=== PATIENT | female | born 1945 | race Caucasian/White ===

== ENCOUNTER → 2023-05-03 09:54 | Outpatient (REF) | payer MEDICARE, OTHER, SELFPAY | LOC: HWRAD 09:54 | PROVIDERS: ATTENDING PHYSICIAN Family Medicine | DX: N95.0 Postmenopausal bleeding (principal) | CPT/HCPCS: 76830; 76856 ==

== ENCOUNTER 2023-11-18 11:30 | Emergency (ER) | payer MEDICARE, OTHER, SELFPAY ==
[2023-11-18 11:36] VITALS: BP 170/84
[2023-11-18 12:28] VITALS: BMI 28.2
--- NOTE | 2023-11-18 12:56 | ED.GENMED ---
History of Present Illness
General
Chief Complaint: Extremity Pain (non-traumatic)
Time Seen by Provider: 11/18/23 12:16
History of Present Illness
History of Present Illness:
78-year-old female presents emergency department for evaluation of nontraumatic right ankle and lower leg swelling for the past day. She is unsure if there may have been a insect bite to the right foot. She is able to ambulate without significant
pain. Denies any fevers or chills.
Past History
Past History
ED Past Medical History: None
Social History
Tobacco: Former smoker
Employment: Employed
Review of Systems
Review of Systems
Allergies reviewed?: Yes
All Other Systems: ROS reviewed and negative except as documented in HPI and ROS
Phy Exam
Physical Exam
Physical Exam:
GEN: Well appearing, NAD, WDWN
HEENT: Oral mucosa moist, no scleral icterus
Cardiac: Regular rate
Lung: No respiratory distress, no tachypnea
MSK: No gross deformity or injuries. Mild swelling of the right lower leg and ankle, no pain with passive range of motion. Strong DP pulse
Skin: Good color, no pallor or jaundice, no rashes
Neuro: AO x3, moves all extremities freely
Psych: Calm, cooperative
Course
Orders/Labs/Results
Orders:
Orders
11/18/23 11:35
Ankle, Right 3 view CR [CR Ankle - Right Min 3 Views *] Stat
Comment:
Reason For Exam: swollen, pain
11/18/23 12:53
Venous Doppler Lwr Ext Rt [US Periph Venous LOWER Ext RT] Urgent
Comment:
Reason For Exam: RLE swelling
Vital Signs
Initial and Last Documented VS:
Initial Vital Signs
Temp Pulse Resp BP Pulse Ox
97.8 F 82 16 170/84 98
11/18/23 11:36 11/18/23 11:36 11/18/23 11:36 11/18/23 11:36 11/18/23 11:36
Last Documented Vital Signs
Temp Pulse Resp BP Pulse Ox
97.8 F 82 16 170/84 98
11/18/23 11:36 11/18/23 11:36 11/18/23 11:36 11/18/23 11:36 11/18/23 11:36
MDM/Problems Addressed
MDM/Problems Addressed:
X-rays unremarkable. Venous Doppler study negative for DVT. Unclear etiology, no clinical signs of infection, pulses strong no indication of infectious etiology or vascular pathology
*Critical Care Note
Total Time (30-74mins, 75-104mins- exclusive of procedures): Not Applicable
ED Attending Note
-
Portions of this chart may have been created with voice recognition software.� Occasional wrong word or��sound alike� substitutions may have occurred due to the inherent limitations of voice recognition software.
Discharge Plan
Departure
Patient Disposition: Home (Routine Discharge)
Date of Disposition: 11/18/23
Time of Disposition: 13:35
Patient with high blood pressure during this ER visit?: No
Discharge Problem:
Right ankle swelling
Instructions: Swelling
Prescriptions:
No Action
hydrocortisone acetate 25 MG suppository
25 mg NM HS Qty: 10 0RF
Referrals:
Funmilayo Reyna MD [Family Provider] -
Interventions
Interventions:
*Risk Screen - Suicide Last Done: 11/18/23 12:28
*General Assessment Last Done: 11/18/23 12:28
*Neglect/Abuse Screening Last Done: 11/18/23 13:42
ED- Fall Risk Assessment Last Done: 11/18/23 13:42
*ED COVID-19 Vaccine History Last Done: 11/18/23 12:28
*Nursing Disposition Last Done: 11/18/23 13:42
ED-Musculoskeletal Assessment Last Done: 11/18/23 12:28
ED-Peripheral Vascular Assessment Last Done: 11/18/23 12:30
ED-Skin Assessment Last Done: 11/18/23 12:28
Discharge Date and Time
Discharge Date/Time: 11/18/23 13:43
Print Language: YEMENI
== END 2023-11-18 13:43 | disposition home or self-care (01) ==
LOC: EMR 11:30
PROVIDERS: EMERGENCY PHYSICIAN Emergency Medicine; FAMILY PHYSICIAN Family Medicine
DX: M25.471 Effusion, right ankle (principal); Z87.891 Personal history of nicotine dependence
CPT/HCPCS: 99284; 73610; 93971

== ENCOUNTER → 2024-06-03 13:37 | Outpatient (REF) | payer MEDICARE, OTHER, SELFPAY | LOC: HWWDC 13:37 | PROVIDERS: ATTENDING PHYSICIAN Family Medicine | DX: Z12.31 Encounter for screening mammogram for malignant neoplasm of breast (principal); M85.88 Other specified disorders of bone density and structure, other site | CPT/HCPCS: 77063; 77067; 77080 ==

== ENCOUNTER → 2024-06-19 07:49 | Outpatient (REF) | payer MEDICARE, OTHER, SELFPAY | LOC: PAVMRI 07:49 | PROVIDERS: ATTENDING PHYSICIAN Family Medicine | DX: D32.0 Benign neoplasm of cerebral meninges (principal) | CPT/HCPCS: 70553; A9575 ==

== ENCOUNTER 2024-11-21 15:50 | Emergency (ER) | payer MEDICARE, OTHER, SELFPAY ==
[2024-11-21 15:58] VITALS: BP 99/74
[2024-11-21 16:21] LABS: Hematocrit 38.2 % (37.0-47.0); Hemoglobin 13.4 g/dL (12.0-16.0); Mean Corp Hgb Conc. 35.1 g/dL (33.0-37.0); Mean Corpuscular Volume 87.2 fL (81.0-99.0); Nucleated Red Blood Cells % 0 %; Platelet Count 354 10^3/uL (130-400); Red Cell Dist. Width 12.5 % (11.5-14.5)
[2024-11-21 16:44] LABS: ALT (SGPT) 26 U/L (0-35); AST (SGOT) 23 U/L (14-36); Albumin 3.8 g/dl (3.5-5.0); Alkaline Phosphatase 92 U/L (38-126); Blood Urea Nitrogen 14 mg/dl (7-17); Calcium 9.4 mg/dl (8.4-10.2); Carbon Dioxide 28 mmol/L (22-30); Chloride 101 mmol/L (98-107); Glucose 86 mg/dl (70-99); Potassium 3.2 mmol/L (3.5-5.1); Sodium 136 mmol/L (135-145); Total Protein 6.5 g/dl (6.3-8.2); eGFR > 60.00
--- NOTE | 2024-11-21 19:15 | ED.GENMED ---
History of Present Illness
<Valeria Eid MD - Last Filed: 11/21/24 23:26>
General
Chief Complaint: Abdominal Symptoms
Source: patient and other (Ex [id number] who is bedside)
Exam Limitations: none
Time Seen by Provider: 11/21/24 18:49
History of Present Illness
History of Present Illness:
This patient is a 79-year-old female presents with reported URI diagnosed in an urgent care on November 04. She was started on amoxicillin. She finished the amoxicillin, but notes on November 05, the next day after starting the medication, she
developed diarrhea. This diarrhea continues. She describes it as very loose associated with mucus but no blood or black stool. She is having 4-5 episodes per day and is afraid to eat because of continued diarrhea. She denies nausea, vomiting,
fever, sore throat, rhinorrhea. She still does have an occasional cough but denies chest pain or dyspnea. She describes intermittent episodes of lower abdominal pain associated with 'gurgling', usually resolved with a bowel movement. She does not
have pain at this moment. She did state that when she wiped yesterday she noted blood which she thinks is very consistent with a known hemorrhoid. She did see her doctor on Sunday and was prescribed Pepcid. She also attempted provide stool
sample to an outside lab but they told her they were unable to test it. Patient denies recent travel. She does visit her every day and he lives in a facility.
Past History
<Valeria Eid MD - Last Filed: 11/21/24 23:26>
Past History
ED Past Medical History: HTN, Hypercholesterolemia and Psychiatric
ED Past Surgical History: and Orthopedic
Social History
Tobacco: Former smoker
Alcohol: Occasional
Drug: None
Personal:
Living: alone
Phy Exam
<Valeria Eid MD - Last Filed: 11/21/24 23:26>
Physical Exam
Physical Exam:
GENERAL: Alert , in no apparent distress
EYE: pupils equal and reactive
NECK: Supple, no significant adenopathy.
ENT: o/p clr, mm slightly dry
CARDIAC: Regular rate and rhythm .
LUNGS: Clear breath sounds bilaterally, no acute respiratory distress, no wheezes/rales/rhonchi
ABDOMEN: Soft, mild right mid and left lower tenderness, no r/g, no cvat
NEUROLOGICAL: Alert and oriented, no focal neuro deficits
SKIN: Warm and dry, skin intact.
MUSCULOSKELETAL: No edema, well perfused.
PSYCH: Normal and appropriate interaction.
Course
<Valeria Eid MD - Last Filed: 11/21/24 23:26>
Orders/Labs/Results
Orders:
Orders
11/21/24 16:11
Complete Blood Count/With Diff Urgent
Comprehensive Metabolic Panel Urgent
11/21/24 19:14
0.9% Sodium Chloride 1000 ml [Nss] 1,000 ml IV BOLUS
Iohexol [Omnipaque] See Protocol PO NOW STA
11/21/24 19:15
CT Abd/pel W Iv And Oral Contr Urgent
Comment:
Reason For Exam: diarrhea abd pain
11/21/24 19:18
Potassium Chloride [KCl] 40 meq PO NOW STA
11/21/24 22:29
STOOL [C difficile Antigen & Toxins] Urgent
ES Source: Feces/Stool
Specimen Description:
Date Specimen was Collected: 11/21/24
Time Specimen was Collected: 21:49
11/21/24 22:30
Stool Culture Urgent
ES Source: Feces/Stool
Specimen Description:
Date Specimen was Collected: 11/21/24
Time Specimen was Collected: 21:49
Abnormal Lab Results
11/21/24
16:11
WBC 14.9 H 10^3/uL
(4.8-10.8)
Abs Immat Gran (auto) 0.1 H 10^3/uL
(0-0.05)
Absolute Neuts (auto) 11.2 H 10^3/uL
(1.4-6.5)
Absolute Monos (auto) 1.1 H 10^3/uL
(0.1-0.6)
Lymphocytes % 13.5 L %
(20.5-51.1)
Potassium 3.2 L mmol/L
(3.5-5.1)
11/21/24 16:11
11/21/24 16:11
Vital Signs
Initial and Last Documented VS:
Initial Vital Signs
Temp Pulse Resp BP Pulse Ox
97.9 F 106 18 99/74 98
11/21/24 15:58 11/21/24 15:58 11/21/24 15:58 11/21/24 15:58 11/21/24 15:58
Last Documented Vital Signs
Temp Pulse Resp BP Pulse Ox
97.9 F 92 24 124/69 95
11/21/24 15:58 11/21/24 23:30 11/21/24 23:30 11/21/24 23:00 11/21/24 23:15
<Zan Diaz PA-C - Last Filed: 11/22/24 09:03>
Orders/Labs/Results
Orders:
Orders
11/21/24 16:11
Complete Blood Count/With Diff Urgent
Comprehensive Metabolic Panel Urgent
11/21/24 19:14
0.9% Sodium Chloride 1000 ml [Nss] 1,000 ml IV BOLUS
Iohexol [Omnipaque] See Protocol PO NOW STA
11/21/24 19:15
CT Abd/pel W Iv And Oral Contr Urgent
Comment:
Reason For Exam: diarrhea abd pain
11/21/24 19:18
Potassium Chloride [KCl] 40 meq PO NOW STA
11/21/24 22:29
STOOL [C difficile Antigen & Toxins] Urgent
ES Source: Feces/Stool
Specimen Description:
Date Specimen was Collected: 11/21/24
Time Specimen was Collected: 21:49
11/21/24 22:30
Stool Culture Urgent
ES Source: Feces/Stool
Specimen Description:
Date Specimen was Collected: 11/21/24
Time Specimen was Collected: 21:49
Abnormal Lab Results
11/21/24
16:11
WBC 14.9 H 10^3/uL
(4.8-10.8)
Abs Immat Gran (auto) 0.1 H 10^3/uL
(0-0.05)
Absolute Neuts (auto) 11.2 H 10^3/uL
(1.4-6.5)
Absolute Monos (auto) 1.1 H 10^3/uL
(0.1-0.6)
Lymphocytes % 13.5 L %
(20.5-51.1)
Potassium 3.2 L mmol/L
(3.5-5.1)
11/21/24 16:11
11/21/24 16:11
Vital Signs
Initial and Last Documented VS:
Initial Vital Signs
Temp Pulse Resp BP Pulse Ox
97.9 F 106 18 99/74 98
11/21/24 15:58 11/21/24 15:58 11/21/24 15:58 11/21/24 15:58 11/21/24 15:58
Last Documented Vital Signs
Temp Pulse Resp BP Pulse Ox
97.9 F 92 24 124/69 95
11/21/24 15:58 11/21/24 23:30 11/21/24 23:30 11/21/24 23:00 11/21/24 23:15
<Valeria Eid MD - Last Filed: 11/21/24 23:26>
*Pulse Oximetry
SaO2: 98
Oxygen Mode of Delivery: Room air
<Valeria Eid MD - Last Filed: 11/21/24 23:26>
Update Note
Update Note:
Patient presents to the Emergency Department with _abdominal pain/cramping and diarrhea
Number and Complexity of Problems Addressed at the Encounter
� Chronic conditions affecting care:
� Acute Exacerbation and/or Progression of Chronic Illness:
� Differential Diagnosis includes: But not limited to ischemic colitis, infectious colitis, C. difficile colitis, etc. etc.
Amount and/or Complexity of Data to be Reviewed and Analyzed
� I performed an independent evaluation of and my interpretation is:
EKG:
CT:Mild left-sided colitis.
Hepatic fatty infiltration.
Xrays:
Laboratory Studies: Mild leukocytosis, nonspecific. Mild hypokalemia will replace with p.o. here.
Other:
� Review of other/old records reveals:
� Clinical information was obtained by an independent historian:
� Prescriptions/Medications Considered but not given:
� Further testing considered but not performed:
Risk of Complications and/or Morbidity or Mortality of Patient Management
� Social determinants of health affecting care:
� Discussion with other providers (PCP, Hospitalists, Consultants, etc):
� Escalation of care including admission/observation vs risk of discharge considered: Patient was able to provide a stool sample. She is comfortable awake and alert here. Abdomen soft and nontender. Discussed with patient her
results including labs and CT. With shared decision making, we will pause on prescribing antibiotics awaiting formal stool cultures. She will continue to focus on hydration and is aware of reasons to return to the ER.
<Zan Diaz PA-C - Last Filed: 11/22/24 09:03>
Update Note
Update Note:
Patient presents to the Emergency Department with _abdominal pain/cramping and diarrhea
Number and Complexity of Problems Addressed at the Encounter
� Chronic conditions affecting care:
� Acute Exacerbation and/or Progression of Chronic Illness:
� Differential Diagnosis includes: But not limited to ischemic colitis, infectious colitis, C. difficile colitis, etc. etc.
Amount and/or Complexity of Data to be Reviewed and Analyzed
� I performed an independent evaluation of and my interpretation is:
EKG:
CT:Mild left-sided colitis.
Hepatic fatty infiltration.
Xrays:
Laboratory Studies: Mild leukocytosis, nonspecific. Mild hypokalemia will replace with p.o. here.
Other:
� Review of other/old records reveals:
� Clinical information was obtained by an independent historian:
� Prescriptions/Medications Considered but not given:
� Further testing considered but not performed:
Risk of Complications and/or Morbidity or Mortality of Patient Management
� Social determinants of health affecting care:
� Discussion with other providers (PCP, Hospitalists, Consultants, etc):
� Escalation of care including admission/observation vs risk of discharge considered: Patient was able to provide a stool sample. She is comfortable awake and alert here. Abdomen soft and nontender. Discussed with patient her
results including labs and CT. With shared decision making, we will pause on prescribing antibiotics awaiting formal stool cultures. She will continue to focus on hydration and is aware of reasons to return to the ER.
9:02 AM November 22: Stool culture resulted as a critical value. She tested positive for C. difficile. I called the patient and spoke with her and discussed these results. I called and a prescription for vancomycin 125 mg 4 times a day to her
pharmacy. Return precautions were given.
ED Attending Note
<Valeria Eid MD - Last Filed: 11/21/24 23:26>
-
Portions of this chart may have been created with voice recognition software.� Occasional wrong word or��sound alike� substitutions may have occurred due to the inherent limitations of voice recognition software.
Discharge Plan
Departure
Patient Disposition: Home (Routine Discharge)
Date of Disposition: 11/21/24
Time of Disposition: 23:22
Patient with high blood pressure during this ER visit?: No
Discharge Problem:
Colitis
Instructions: Colitis (DC), Diarrhea in adults - ED (DC)
Prescriptions:
New
vancomycin 125 mg capsule
125 mg PO QID Qty: 40 0RF
No Action
hydrocortisone acetate 25 MG suppository
25 mg [place] HS Qty: 10 0RF
Referrals:
Stu Mayfield MD [Active, Gastroenterology] - Next open appointment
Funmilayo Reyna MD [Family Provider, Family Practice]
Activity Restrictions/Additional Instructions:
YOU HAVE CULTURE RESULTS THAT ARE STILL PENDING. PLEASE BE SURE TO FOLLOW-UP WITH THESE RESULTS WITH YOUR DOCTOR OR THROUGH THE PORTAL. IF YOU DEVELOP BLOOD IN YOUR STOOL, FEVER, RECURRENT OR PERSISTENT ABDOMINAL PAIN, DIZZINESS, CHEST PAIN,
SHORTNESS OF BREATH, OR OTHER WORRISOME SIGNS, PLEASE RETURN TO THE ER IMMEDIATELY EXCLAMATION
Interventions
Interventions:
*Risk Screen - Suicide Last Done: 11/21/24 15:58
*General Assessment Last Done: 11/21/24 15:58
*Neglect/Abuse Screening Last Done: 11/21/24 22:47
*ED- Fall Risk Assessment Last Done: 11/21/24 22:47
*ED COVID-19 Vaccine History Last Done: 11/21/24 22:47
*Nursing Disposition Last Done: 11/21/24 23:30
LN-Qlyhfm-Cmdfjwoses Assessment Last Done: 11/21/24 22:47
Discharge Date and Time
Discharge Date/Time: 11/21/24 23:30
Print Language: FRISIAN
[2024-11-21] MEDS: NSS 1000 IV (19:39)
[2024-11-21] MEDS: KCL 40 MEQ PO (19:39)
[2024-11-21] MEDS: OMNIPAQUE 50 ML PO (19:39)
[2024-11-21 19:50] VITALS: BP 118/53
[2024-11-21 20:00] VITALS: BP 125/66
[2024-11-21 21:02] VITALS: BP 142/70
[2024-11-21 22:28] VITALS: BP 109/80
[2024-11-21 23:00] VITALS: BP 124/69
== END 2024-11-21 23:30 | disposition home or self-care (01) ==
LOC: EMR 15:50
PROVIDERS: Emergency Medicine; EMERGENCY PHYSICIAN Emergency Medicine; FAMILY PHYSICIAN Family Medicine
DX: A04.72 Enterocolitis due to Clostridium difficile, not specified as recurrent (principal); Z87.891 Personal history of nicotine dependence
CPT/HCPCS: 99285; 96360; 74177; 80053; 85025; 87045; 87046; 87324; 87427; 87449; Q9967